=== PATIENT | female | born 1990 | race Caucasian/White ===

== ENCOUNTER 2025-02-05 11:08 | Emergency (ER) | payer MEDICAID ==
[~2025-02-05] VITALS: Ht 162.6 cm; Wt 75.7 kg
[~2025-02-05 11:08] MED LIST: KETO10TA2 MT; LACT1CAP79 PO; NITR-87 MT; OMEP10CA5 MT
[2025-02-05 11:15] VITALS: O2SAT 97
[2025-02-05] MEDS: DIPHENHYDRAMINE 50MG/ML VIAL IV ONE (11:42)
[2025-02-05] MEDS: SODIUM CHLORIDE 0.9% 1,000 ML IV ONE (11:42)
[2025-02-05 11:44] LABS: BASOPHILS % 0.6 % (0.0-2.0); EOSINOPHILS % 0.5 % (0.0-5.0); HEMATOCRIT. 46.2 % (36.0-48.0); LYMPHOCYTES % 28.7 % (20.0-50.0); MEAN CORPUSCULAR HEMOGLOBIN 27.5 pg (28.0-32.0); MEAN CORPUSCULAR HGB CONC 32.4 g/dL (31.0-37.0); MEAN CORPUSCULAR VOLUME 84.8 fL (81.0-99.0); MEAN PLATELET VOLUME 8.2 fl (7.4-10.4); MONOCYTES % 1.6 % (2.0-8.0); NEUTROPHILS % 68.6 % (40.0-76.0); PLATELET 386 x1000/uL (130-400); RED BLOOD CELL COUNT 5.45 mill/uL (4.2-5.4); RED CELL DISTRIBUTION WIDTH 14.2 % (11.6-14.6); WHITE BLOOD COUNT 13.1 x1000/uL (4.5-11.0)
[2025-02-05 11:45] LABS: CHLORIDE 103 mEq/L (98-107); SODIUM 137 mEq/L (136-145)
[2025-02-05 11:46] LABS: CALCIUM 10.2 mg/dL (8.7-10.4); CARBON DIOXIDE 19 mEq/L (21-32)
[2025-02-05 11:51] LABS: CREATININE 0.9 mg/dL (0.6-1.0); GLUCOSE 251 mg/dL (70-105); UREA NITROGEN BLOOD 9 mg/dL (9-23)
[2025-02-05 11:55] LABS: HCG SCREEN NEGATIVE
[2025-02-05] MEDS: PROCHLORPERAZINE 10MG/2ML VIAL IV ONE (12:28)
[2025-02-05 15:02] LABS: ALANINE AMINOTRANSFERASE 22 IU/L (10-49); ALBUMIN 4.9 g/dL (3.2-4.8); ASPARTATE AMINOTRANSFERASE 26 IU/L (<34); BILIRUBIN DIRECT 0.1 mg/dL (<=3.0)
[2025-02-05 15:03] LABS: BILIRUBIN TOTAL 0.5 mg/dL (0.1-1.0); PROTEIN TOTAL 8.6 g/dL (6.0-8.3)
[2025-02-05 15:10] VITALS: BP 119/78; PULSE 100; RESP 18; TEMP 36.7; O2SAT 97
== END 2025-02-05 15:50 | disposition home or self-care (01) ==
LOC: ER 11:08
DX: R51.9 Headache, unspecified (principal); R11.2 Nausea with vomiting, unspecified; E11.9 Type 2 diabetes mellitus without complications; Z79.899 Other long term (current) drug therapy; Z90.49 Acquired absence of other specified parts of digestive tract; Z98.890 Other specified postprocedural states
CPT/HCPCS: 99285; 70450; 96374; 96361; 96375; 80076; 80048; 84703; 83690; 85025; 36415; 74176; 93005; J1200; J0780; J7030